=== PATIENT | female | born 1995 | race African-American/Black ===

== ENCOUNTER 2024-06-04 04:26 | Emergency (ER) | payer OTHER ==
[~2024-06-04] VITALS: Ht 162.6 cm; Wt 88.5 kg
[2024-06-04 04:34] VITALS: PULSE 103; RESP 18; TEMP 99; O2SAT 97
[2024-06-04] MEDS ORDERED: DIPHTH,PERTUSS(ACELL),TET VAC 0.5 ML SYRINGE IM ONE (04:45)
[2024-06-04] MEDS: LIDOCAINE HCL 1% LOCAL INJ 20 ML VIAL INJ STA (04:46)
[2024-06-04] MEDS ORDERED: CEPHALEXIN500 MG PO (04:47)
[2024-06-04] MEDS ORDERED: TETANUS/DIPHTHERIA TOX ADULT 0.5 ML SYR ONE (04:49)
[2024-06-04] MEDS: TETANUS/DIPHTHERIA TOX ADULT 0.5 ML SYR IM STA (04:51)
== END 2024-06-04 04:55 | disposition home or self-care (01) ==
LOC: ER 04:35
DX: S61.200A Unspecified open wound of right index finger without damage to nail, initial encounter (principal); W45.8XXA Other foreign body or object entering through skin, initial encounter; Y92.89 Other specified places as the place of occurrence of the external cause
CPT/HCPCS: 12001; 90471; 90714; 99283; J2003

== ENCOUNTER 2025-05-14 19:44 | Emergency (ER) | payer SELFPAY ==
[~2025-05-14] VITALS: Ht 165.1 cm; Wt 86.2 kg
[~2025-05-14 19:44] MED LIST: CEPHALEXIN500 MG PO
[2025-05-14 21:21] LABS: BASOPHILS % 0.2 % (0.0-1.0); EOSINOPHILS % 0.5 % (0.0-6.0); LYMPHOCYTES % 15.1 % (18.0-39.1); MONOCYTES % 7.0 % (4.4-11.3); NEUTROPHILS % 76.8 % (38.7-80.0); RED CELL DISTRIBUTION WIDTH 11.8 % (11.7-14.4)
[2025-05-14 21:30] LABS: INR 1.1
[2025-05-14] MEDS: ONDANSETRON HCL INJ 2MG/ML 2ML 2 MG/ML VIAL IV STA (21:30)
[2025-05-14] MEDS: Morphine 4mg INJECTION 4 MG/ML INJ IV ONE (21:30)
[2025-05-14] MEDS: ACETAMINOPHEN 325 MG TAB PO ONE (21:30)
[2025-05-14] MEDS: SODIUM CHLORIDE 0.9% 1000ML 1,000 ML IV ONE (21:31)
[2025-05-14 21:39] LABS: EST GLOMERULAR FILTRATION RATE 123 ML/MIN (>=60)
[2025-05-14 21:40] LABS: LEUKOCYTE ESTERASE ,URINE TRACE (NEGATIVE); PROTEIN,URINE DIPSTICK NEGATIVE (NEGATIVE); URINE UROBILINOGEN 1 mg/dL (0.2 - 1); WBC,URINE (MAN) 0-5 /HPF (0-5)
[2025-05-14] MEDS ORDERED: IOPAMIDOL 370 MG/ML 100 ML INFUS..BTL INJ ONE (21:47)
[2025-05-14 21:59] LABS: EPITHELIAL CELLS,URINE MANY /LPF
[2025-05-14] MEDS: Vancomycin IV 1 GM in SODIUM CHLORIDE 0.9% 250ML 250 ML IV ONE (22:24)
[2025-05-14] MEDS ORDERED: ULTRAM 50MG50 MG PO (23:18)
[2025-05-14] MEDS ORDERED: DOXYCYCLINE HY100 MG PO (23:18)
[2025-05-15 00:04] VITALS: PULSE 77; RESP 15; TEMP 98.6; O2SAT 100
[2025-05-15] MEDS ORDERED: IOPAMIDOL 370 MG/ML 100 ML INFUS..BTL INJ ONE (05:53)
== END 2025-05-15 00:12 | disposition home or self-care (01) ==
LOC: ER 20:15
DX: L02.412 Cutaneous abscess of left axilla (principal); L72.9 Follicular cyst of the skin and subcutaneous tissue, unspecified
CPT/HCPCS: 36415; 71260; 80053; 81001; 83605; 84702; 85025; 85610; 85730; 87040; 93005; 99284; J2270; J2405; J2543; J3373; J7030; J7050; Q9967 ×2